=== PATIENT | male | born 1980 | race Caucasian/White ===

== ENCOUNTER 2019-04-10 03:53 | Emergency (ER) | payer BC ==
[2019-04-10] MEDS ORDERED: CLINDAMYCIN-D5W 900 MG/50 ML*** 900 MG/50 ML BAG IV STA (04:11)
[2019-04-10] MEDS ORDERED: Sodium Chloride 0.9% 1000 ML 1,000 ML IV STA ×2 (04:11→08:31)
--- NOTE | 2019-04-10 04:11 | ERPHSYRPT ---
- History of Present Illness Time Seen by Provider: 04/10/19 03:59 Source: patient Exam Limitations: no limitations Physician History: 38 years old male with multiple bad indications as into the ER visit chief complaint of right sided facial swelling and pain since yesterday. Patient reports it started yesterday morning and is gradually worsening, woke up prior to arrival with swelling for the right side difficulty fully opening right eye. Denies any pain in the eyeball itself or difficulty movements of eyeball but is unable to open it secondary to puffiness around. No fever or chills reported. Timing/Duration: gradual onset, yesterday Severity: moderate ENT Location: facial, dental Associated Symptoms: facial pain/swelling, nasal congestion/drainage, tooth pain , No fever, No chills, No nasal foreign body Allergies/Adverse Reactions: amoxicillin [Amoxicillin] Allergy (Mild, Verified 04/10/19 04:15) Hx Tetanus, Diphtheria Vaccination/Date Given: Yes Hx Influenza Vaccination/Date Given: No Hx Pneumococcal Vaccination/Date Given: No - Review of Systems Constitutional: No Symptoms Eyes: No Symptoms Ears, Nose, & Throat: Mouth Pain, Loose Teeth, Throat Pain, Throat Swelling Respiratory: No Symptoms Cardiac: No Symptoms Abdominal/Gastrointestinal: No Symptoms Genitourinary Symptoms: No Symptoms Musculoskeletal: No Symptoms Skin: No Symptoms Psychological: No Symptoms Endocrine: No Symptoms Hematologic/Lymphatic: No Symptoms Immunological/Allergic: No Symptoms - Past Medical History Pertinent Past Medical History: Yes Other Medical History: HAD SOME KIND OF URINARY GENETIC PROBLEM A CHILD-NO SURGERY BUT IS CORRECTED - Past Surgical History Past Surgical History: Yes Other Surgical History: CYST AND WARTS REMOVED. - Social History Smoking Status: Current every day smoker Exposure to second hand smoke: Yes Drug Use: none Patient Lives Alone: No - Nursing Vital Signs Nursing Vital Signs: Initial Vital Signs Temperature 100.9 F 04/10/19 04:04 Pulse Rate 110 H 04/10/19 04:04 Respiratory Rate 17 04/10/19 04:04 Blood Pressure 130/74 04/10/19 04:04 O2 Sat by Pulse Oximetry 99 04/10/19 04:04 Pain Scale Pain Intensity 2 - Physical Exam General Appearance: no apparent distress, alert Eye Exam: bilateral eye: normal inspection, PERRL, EOMI Ear Exam: bilateral ear: auricle normal, canal normal, TM normal Nasal Exam: normal inspection, sinus tenderness (right) Throat Exam: dental tenderness (multiple dental cares with periodontal disease.) , mandibular swelling, maxillary swelling (right with puufiness upto eye , ), moist mucus membranes, pharynx swelling Neck Exam: normal inspection, non-tender Cardiovascular/Respiratory Exam: chest non-tender, normal breath sounds, regular rate/rhythm Abdominal Exam: non-tender, soft Neurologic Exam: alert, oriented x 3, cooperative, traffic administrator II-XII nml as tested Skin Exam: normal color SpO2 Interpretation: normal O2 Delivery: Room Air - Course Nursing assessment & vital signs reviewed: Yes Ordered Tests: Active Orders 24 hr Category Date Time Status FACIAL BONES WITH CONTRAST [CT] Stat Exams 04/10/19 04:12 Completed BLOOD CULTURE Stat Lab 04/10/19 04:35 Received CBC W DIFF Stat Lab 04/10/19 04:35 Completed CMP Stat Lab 04/10/19 04:35 Completed Lactic Acid Stat Lab 04/10/19 04:32 Completed Medication Summary Discontinued Medications Generic Name Dose Route Start Last Admin Trade Name Freq PRN Reason Stop Dose Admin Albuterol Sulfate 2.5 mg 04/10/19 08:31 04/10/19 08:40 Proventil 2.5 Mg/3 Ml Neb IH 04/10/19 08:32 Not Given STAT ONE Calcium Gluconate 1,000 mg 04/10/19 08:31 04/10/19 08:39 Calcium Gluconate 10% 1000 Mg IV 04/10/19 08:32 Not Given STAT ONE Dextrose 50 ml 04/10/19 08:31 04/10/19 08:39 D50w 50 Ml Abboject IV 04/10/19 08:32 Not Given STAT ONE Clindamycin HCl/Dextrose 900 mg in 50 mls @ 100 mls/hr 04/10/19 04:11 06:26 Clindamycin-D5w 900 Mg/50 Ml IV 04/10/19 04:40 Infused STAT STA Infusion Sodium Chloride 1,000 mls @ 999 mls/hr 04/10/19 04:11 04/10/19 06:25 Sodium Chloride 0.9% 1000 Ml IV 04/10/19 05:11 Infused .Q1H1M STA Infusion Clindamycin HCl/Dextrose Confirm 04/10/19 04:18 Clindamycin-D5w 900 Mg/50 Ml Administered 04/10/19 04:19 Dose 900 mg in 50 mls @ ud IV .STK-MED ONE Sodium Chloride Confirm 04/10/19 04:18 Sodium Chloride 0.9% 1000 Ml Administered 04/10/19 04:19 Dose 1,000 mls @ ud .ROUTE .STK-MED ONE Sodium Chloride 1,000 mls @ 499 mls/hr 04/10/19 08:31 04/10/19 08:41 Sodium Chloride 0.9% 1000 Ml IV 04/10/19 10:31 Not Given .Q2H1M STA Sodium Chloride 1,000 mls @ 100 mls/hr 04/10/19 09:00 04/10/19 08:55 Sodium Chloride 0.9% 1000 Ml IV 05/10/19 08:59 100 mls/hr .Q10H LAINE Administration Sodium Chloride Confirm 04/10/19 08:52 Sodium Chloride 0.9% 1000 Ml Administered 04/10/19 08:53 Dose 1,000 mls @ ud .ROUTE .STK-MED ONE Insulin Human Regular 10 unit 04/10/19 08:31 04/10/19 08:40 Novolin R IV 04/10/19 08:32 Not Given STAT ONE Ketorolac Tromethamine 30 mg 04/10/19 04:13 04/10/19 04:32 Toradol 30 Mg Injection IV 04/10/19 04:14 30 mg STAT ONE Administration Ketorolac Tromethamine Confirm 04/10/19 04:18 Toradol 30 Mg Injection Administered 04/10/19 04:19 Dose 30 mg .ROUTE .STK-MED ONE Methylprednisolone Sodium Succinate 125 mg 04/10/19 04:13 04/10/19 04:32 Solu-Medrol 125 Mg IV 04/10/19 04:14 125 mg STAT ONE Administration Methylprednisolone Sodium Succinate Confirm 04/10/19 04:18 Solu-Medrol 125 Mg Administered 04/10/19 04:19 Dose 125 mg .ROUTE .STK-MED ONE Sodium Bicarbonate 50 meq 04/10/19 08:31 04/10/19 08:40 Sodium Bicarbonate 50 Meq/50 Ml Abboject IV 04/10/19 08:32 Not Given STAT ONE Sodium Polystyrene Sulfonate 30 g 04/10/19 08:31 04/10/19 08:40 Kayexylate 15 Gm/60 Ml PO 04/10/19 08:32 Not Given STAT ONE Lab/Rad Data: Laboratory Result Diagrams 04/10/19 04:35 04/10/19 04:35 Laboratory Results 04/10/19 04/10/19 04/10/19 Range/Units 04:35 04:35 04:32 WBC 5.5 (4.0-10.5) K/mm3 RBC 4.83 (4.1-5.6) M/mm3 Hgb 14.9 (12.5-18.0) gm/dl Hct 43.5 (42-50) % MCV 90.1 (78-100) fl MCH 30.8 (26-32) pg MCHC 34.3 (32-36) g/dl RDW 12.5 (11.5-14.0) % Plt Count 110 L (150-450) K/mm3 MPV 10.5 H (6-9.5) fl Gran % 85.3 H (36.0-66.0) % Eos # (Auto) 0.05 (0-0.5) Absolute Lymphs (auto) 0.39 L (1.0-4.6) Absolute Monos (auto) 0.36 (0.0-1.3) Lymphocytes % 7.1 L (24.0-44.0) % Monocytes % 6.5 (0.0-12.0) % Eosinophils % 0.9 (0.00-5.0) % Basophils % 0.2 (0.0-0.4) % Absolute Granulocytes 4.69 (1.4-6.9) Basophils # 0.01 (0-0.4) Sodium 141 (137-145) mmol/L Potassium 4.0 (3.5-5.1) mmol/L Chloride 106 (98-107) mmol/L Carbon Dioxide 24 (22-30) mmol/L Anion Gap 14.4 (5-15) MEQ/L BUN 9 (9-20) mg/dL Creatinine 1.03 (0.66-1.25) mg/dL Estimated GFR > 60.0 ML/MIN Glucose 99 (74-106) mg/dL Lactic Acid 0.8 (0.4-2.0) Calcium 9.5 (8.4-10.2) mg/dL Total Bilirubin 1.60 H (0.2-1.3) mg/dL AST 25 (17-59) U/L ALT 12 (0-50) U/L Alkaline Phosphatase 70 (38-126) U/L Serum Total Protein 7.8 (6.3-8.2) g/dL Albumin 4.3 (3.5-5.0) g/dL Slides for Path Review YES - Progress Progress: improved, re-examined Progress Note: 04/10/19 07:49 38 years old is evaluated for right facial swelling. Patient does not have any difficulty moments of eyeball itself. He is given Solu-Medrol and clindamycin. On reevaluation has some improvement in swelling. Has normal white count and lactate. I obtained CT face with contrast which showed periapical lucencies around molars with air subperiosteal space suggesting abscess. Discussed with Dr. 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 Discussed with and patient accepted for transfer. Discussed with .: Bianca (recommended transfer ) Counseled pt/family regarding: lab results, diagnosis, need for follow-up, rad results, smoking cessation - Departure Departure Disposition: Transfer Clinical Impression: Abscess of jaw Condition: Fair Critical Care Time: No Referrals: ROXIE GRIFFITHS [Primary Care Provider] -
[2019-04-10] MEDS ORDERED: TORAdol 30 mg Injection IV ONE (04:13)
[2019-04-10] MEDS ORDERED: solu-MEDROL 125 MG IV ONE (04:13)
[2019-04-10] MEDS ORDERED: solu-MEDROL 125 MG ONE (04:18)
[2019-04-10] MEDS ORDERED: TORAdol 30 mg Injection ONE (04:18)
[2019-04-10] MEDS ORDERED: CLINDAMYCIN-D5W 900 MG/50 ML*** 900 MG/50 ML BAG IV ONE (04:18)
[2019-04-10] MEDS ORDERED: Sodium Chloride 0.9% 1000 ML 1,000 ML ONE ×2 (04:18→08:52)
[2019-04-10 04:35] LABS: Absolute Neutrophil Ct (ANC) 4.69 (1.4-6.9); BASOPHIL % 0.2 % (0.0-0.4); Basophil (Absolute #) 0.01 (0-0.4); Eosinophil % 0.9 % (0.00-5.0); Eosinophil (Absolute #) 0.05 (0-0.5); Hematocrit 43.5 % (42-50); Hemoglobin 14.9 gm/dl (12.5-18.0); Lymphocyte (Absolute #) 0.39 (1.0-4.6); Lymphocytes % 7.1 % (24.0-44.0); Mean Cell Volume 90.1 fl (78-100); Mean Corpuscular Hemoglobin 30.8 pg (26-32); Mean Corpuscular Hgb Concent. 34.3 g/dl (32-36); Mean Platelet Volume 10.5 fl (6-9.5); Monocyte (Absolute #) 0.36 (0.0-1.3); Monocytes % 6.5 % (0.0-12.0); Neutrophil % 85.3 % (36.0-66.0); Platelet Count 110 K/mm3 (150-450); Red Blood Count 4.83 M/mm3 (4.1-5.6); Red Cell Distribution Width 12.5 % (11.5-14.0); White Blood Count 5.5 K/mm3 (4.0-10.5)
[2019-04-10 05:26] LABS: ALBUMIN 4.3 g/dL (3.5-5.0); ALKALINE PHOSPHATASE 70 U/L (38-126); ANION GAP 14.4 MEQ/L (5-15); BLOOD UREA NITROGEN 9 mg/dL (9-20); CHLORIDE 106 mmol/L (98-107); Calcium 9.5 mg/dL (8.4-10.2); Carbon Dioxide 24 mmol/L (22-30); Creatinine 1 1.03 mg/dL (0.66-1.25); Glucose 99 mg/dL (74-106); SGOT/AST 25 U/L (17-59); SGPT/ALT 12 U/L (0-50); SODIUM 141 mmol/L (137-145); Total Protein 7.8 g/dL (6.3-8.2)
[2019-04-10 05:49] LABS: Slide Review 1 YES
[2019-04-10] MEDS ORDERED: PROVENTIL 2.5 MG/3 ML NEB IH ONE (08:31)
[2019-04-10] MEDS ORDERED: SODIUM BICARBONATE 50 MEQ/50 ML ABBOJECT IV ONE (08:31)
[2019-04-10] MEDS ORDERED: Kayexylate 15 GM/60 ML PO ONE (08:31)
[2019-04-10] MEDS ORDERED: D50W 50 ml Abboject IV ONE (08:31)
[2019-04-10] MEDS ORDERED: Calcium Gluconate 10% 1000 MG IV ONE (08:31)
[2019-04-10] MEDS ORDERED: NovoLIN R IV ONE (08:31)
[2019-04-10 08:49] VITALS: BP 115/72; PULSE 74; O2SAT 96
[2019-04-10] MEDS ORDERED: Sodium Chloride 0.9% 1000 ML 1,000 ML IV SCH (09:00)
--- NOTE | 2019-04-10 09:32 | XRAY ---
Indication: Right facial swelling/edema. Multiple contiguous axial images obtained through the facial bones using 80 cc of Isovue-370 contrast. Comparison: None There is right facial/right mandibular soft tissue swelling/edema, greatest right infraorbital favoring cellulitis. Tiny fluid along the soft tissue planes but no walled off fluid collection or abnormal air. There are multiple centimeter/subcentimeter cervical and submandibular lymph nodes probably reactive. Largest is right submandibular measuring 8 x 16 mm. No pathologic adenopathy. Major arteries and veins are normal in course and caliber. No acute fracture, suspicious bony lesions, or osseous destructive process. Orbits including roof, larry, and floors intact. There are numerous bilateral upper and lower dental caries, greatest right lower. TMJ bilaterally symmetric. Moderate mucosal thickening right maxillary sinus with lesser degree remaining paranasal sinuses bilaterally without fluid leveling. Orbits and base of the brain unremarkable. Mild degenerative changes of the C4-C5 level. Impression: 1. Right facial and right mandibular soft tissue swelling/edema favoring cellulitis. Scattered small cervical/submandibular lymph nodes presumed reactive. 2. Extensive multiple bilateral dental caries, greatest right lower. 3. Incidental pansinusitis and C4-C5 degenerative changes. Comment: Preliminary interpretation was made by [facility]. No critical discrepancy. CTDI 43.14
== END 2019-04-10 08:30 | disposition short-term general hospital (02) ==
LOC: ED 03:53
DX: M27.2 Inflammatory conditions of jaws (principal)
CPT/HCPCS: 36415; 70487; 80053; 83605; 85025; 87040; 96360; 96365; 96374; 96375; 99285; J1885; J2930